=== PATIENT | female | born 1960 | race Caucasian/White ===

== ENCOUNTER 2023-09-17 06:07 | Day surgery (SDC) | payer BC, SELFPAY ==
--- NOTE | 2023-08-21 10:01 | CM ---
Patient is scheduled for an elective L TSA on 09/17/23- she is a same day patient. Spoke with patient prior to surgery. patient had a R TKR at in 2018. Reintroduced role of Orthopedic Navigator. Patient reports that she lives with her [facility] in [facility] (she also has a home in [place] and travels between these two residences). Currently she functions independently. She does not use any DME and has never had VN services. She has her sling. PCP is Yaquelin Ellis.
Discussed orthopedic program and post surgical plans. Patient will return home when directed by surgeon. Reviewed MD follow up and transition to outpatient therapy. Patient is in agreement with tentative plan and states that her mother will be home
with her and can assist if needed.
Patient will complete online education.
Plan: Orthopedic Navigator will be involved in the care of patient after surgery and will reassess discharge needs at that time.
[2023-08-29 08:29] VITALS: BMI 46.9
[2023-08-29 08:58] LABS: Hematocrit 35.6 % (37.0-47.0); Hemoglobin 11.2 g/dL (12.0-16.0); Mean Corp Hgb Conc. 31.5 g/dL (33.0-37.0); Mean Corpuscular Hgb 25.8 pg (27.0-31.0); Mean Platelet Volume 9.5 fL (7.4-10.4); Platelet Count 336 10^3/uL (130-400); Red Blood Cell Count 4.34 10^6/uL (4.20-5.40); Red Cell Dist. Width 14.5 % (11.5-14.5); White Blood Cell Count 4.6 10^3/uL (4.8-10.8)
[2023-08-29 09:23] LABS: ALT (SGPT) 39 U/L (0-35); AST (SGOT) 31 U/L (14-36); Albumin 4.2 g/dl (3.5-5.0); Alkaline Phosphatase 73 U/L (38-126); Blood Urea Nitrogen 18 mg/dl (7-17); Calcium 9.3 mg/dl (8.4-10.2); Carbon Dioxide 27 mmol/L (22-30); Chloride 105 mmol/L (98-107); Estimated Creatinine Clearance 106 ml/min; Glucose 81 mg/dl (70-99); Potassium 4.6 mmol/L (3.5-5.1); Sodium 138 mmol/L (135-145); Total Bilirubin 0.4 mg/dl (0.2-1.3); eGFR > 60.00
[2023-08-29 15:18] VITALS: BMI 46.9
[2023-09-17] VITALS (10 sets, daily range): BP systolic 113–146; BP diastolic 67–93
--- NOTE | 2023-09-17 05:56 | W.DS.TRANS ---
DC Summary - [employer]
-
Discharge Instructions:
Sleep Apnea Risk Intermediate
Discharge Diagnosis/Procedures Justin Bauman 09/17/23
Diet As tolerated
Activity No strenuous activity
Driving Restrictions No driving
Instructions:
Stand-Alone Forms:
Changes to Home Medications: Yes
Discharge Medications:
DC Medications w/original date entered in [employer]
lisinopril 20 mg tablet 20 mg PO DAILY 12/05/17
pravastatin 20 mg tablet 20 mg PO HS 12/05/17
cholecalciferol (vitamin D3) 50 mcg (2,000 unit) capsule (Vitamin D3) 100 mcg PO DAILY 08/09/22
famotidine 40 mg tablet 40 mg PO HS 08/09/22
melatonin 5 mg capsule 5 mg PO HS 08/09/22
omeprazole 40 mg capsule,delayed release 40 mg PO DAILY 08/09/22
Medical Cannibas 1 dose inhalation PRN PRN Anxiety 08/23/23
ascorbic acid (vitamin C) 250 mg chewable tablet (Vitamin C) 500 mg PO DAILY 08/23/23
biotin 5,000 mcg sublingual tablet 10,000 mcg sublingual DAILY 08/23/23
meloxicam 15 mg tablet 15 mg PO DAILY 08/23/23
multivitamin with minerals-folic acid 200 mcg chewable tablet (Multivitamin Gummies) 2 tab PO DAILY 08/23/23
cefadroxil 500 mg capsule 500 mg PO BID infection prevention #14 caps 08/29/23
dexamethasone 4 mg tablet 4 mg PO BID inflammation #6 tabs 08/29/23
gabapentin 300 mg capsule 300 mg PO HS sleep/pain #10 caps 08/29/23
mupirocin 2 % topical ointment 1 applic topical BID infection prevention #1 tube 08/29/23
ondansetron 4 mg disintegrating tablet 4 mg PO Q6H PRN n/v #20 tabs 08/29/23
scopolamine base 1 mg over 3 days transdermal patch 1 patch transdermal Q72H #1 ea 08/29/23
tramadol 50 mg tablet 50 - 100 mg PO Q6H PRN 1 tab moderate, 2 tabs if pain severe #30 tabs 08/29/23
acetaminophen 650 mg tablet,extended release 1,300 mg PO QID #0 tabs 09/17/23
aspirin 325 mg tablet 325 mg PO DAILY blood clot prevention #1 tab 09/17/23
docusate sodium 100 mg capsule (Colace) 100 mg PO BID stool softner #1 cap 09/17/23
magnesium hydroxide 400 mg/5 mL oral suspension (Milk of Magnesia) 30 ml PO HS PRN Constipation #1 mL 09/17/23
sennosides 8.6 mg tablet (Senokot) 17.2 mg PO BID laxative #2 tabs 09/17/23
Home Medication Changes
cefadroxil 500 mg capsule 500 mg PO BID infection prevention #14 caps 08/29/23
dexamethasone 4 mg tablet 4 mg PO BID inflammation #6 tabs 08/29/23
gabapentin 300 mg capsule 300 mg PO HS sleep/pain #10 caps 08/29/23
mupirocin 2 % topical ointment 1 applic topical BID infection prevention #1 tube 08/29/23
ondansetron 4 mg disintegrating tablet 4 mg PO Q6H PRN n/v #20 tabs 08/29/23
scopolamine base 1 mg over 3 days transdermal patch 1 patch transdermal Q72H #1 ea 08/29/23
tramadol 50 mg tablet 50 - 100 mg PO Q6H PRN 1 tab moderate, 2 tabs if pain severe #30 tabs 08/29/23
Pending Results: No
[2023-09-17] MEDS: CELEBREX 200 MG PO (07:05)
[2023-09-17] MEDS: TYLENOL 1000 MG PO (07:05)
[2023-09-17] MEDS: NORMOSOL-R 1000 IV (07:06)
[2023-09-17] MEDS: SUBLIMAZE 25 MCG IV (10:53)
[2023-09-17] MEDS: ZOFRAN 4 MG IV (12:28)
[2023-09-17] MEDS: ANCEF 5 IV (12:29)
== END 2023-09-17 14:15 | disposition home or self-care (01) ==
LOC: SDS 06:07
PROVIDERS: ATTENDING PHYSICIAN Orthopaedic Surgery Hand Surgery; FAMILY PHYSICIAN Physician Assistant; REFERRING PHYSICIAN Physician Assistant Medical
DX: M19.012 Primary osteoarthritis, left shoulder (principal)
CPT/HCPCS: 23472; C1776; C1713; 36415; 73020; 80053; 83036; 85027; 86850; 86900; 86901; 87070; 93005

== ENCOUNTER → 2023-11-13 09:51 | Outpatient (REF) | payer BC, SELFPAY | LOC: WDC 09:51 | PROVIDERS: ATTENDING PHYSICIAN Physician Assistant | DX: Z12.31 Encounter for screening mammogram for malignant neoplasm of breast (principal) | CPT/HCPCS: 77063; 77067 ==

== ENCOUNTER → 2024-02-14 06:27 | Day surgery (SDC) | payer BC, SELFPAY | LOC: GI 06:27 | PROVIDERS: ATTENDING PHYSICIAN Internal Medicine Gastroenterology | DX: K63.5 Polyp of colon (principal); K57.30 Diverticulosis of large intestine without perforation or abscess without bleeding; K62.1 Rectal polyp; K64.8 Other hemorrhoids; D50.9 Iron deficiency anemia, unspecified; K22.70 Barrett's esophagus without dysplasia; K29.50 Unspecified chronic gastritis without bleeding; K22.89 Other specified disease of esophagus; K44.9 Diaphragmatic hernia without obstruction or gangrene; K31.7 Polyp of stomach and duodenum; K31.89 Other diseases of stomach and duodenum; Z86.010 Personal history of colon polyps; Z98.84 Bariatric surgery status; Z87.19 Personal history of other diseases of the digestive system; Z80.0 Family history of malignant neoplasm of digestive organs | CPT/HCPCS: 45380; 43239; 88305; 88342 ==